=== PATIENT | female | born 1990 | race American Indian/Alaskan Native ===

== ENCOUNTER 2017-09-19 07:49 | Inpatient (IN) | payer MEDICAID ==
[2017-09-19 08:04] VITALS: BMI 25.1
--- NOTE | 2017-09-19 08:28 | ED PDOC ---
Arrival/HPI - General Chief Complaint: Substance Abuse Time Seen by Provider: 09/19/17 07:51 Historian: Patient - History of Present Illness Narrative History of Present Illness (Text): 09/19/17 08:26 A 26 year old female, whose past medical history includes, schizo affective schizophrenia, presents to the emergency department for attempting to commit suicide earlier this morning by ingesting a cocktail of prescribed medication. pt took pills 11pm last night. These medications include losartan 12.5 mg, benztropine 1 mg & 2 mg, monteluksat 10 mg, diphenhydramine 25 mg. The patient is constantly changing her HPI. She first reports she only all pills, now she is reporting she took only "a few pills" . The patient is currently still suicidal and denies any homicidal ideations. She also denies any chest pain, headaches, fevers, or any other complaints at this time. 09/19/17 12:14 Time/Duration: 4-6 hours Symptom Onset: Sudden Symptom Course: Unchanged Activities at Onset: Emotional Upset Context: Home Past Medical History - Infectious Disease Hx of Infectious Diseases: None - Tetanus Immunization Tetanus Immunization: Unknown - Cardiac Hx Cardiac Disorders: No Hx Hypertension: No - Pulmonary Hx Tuberculosis: No - Neurological HX Cerebrovascular Accident: No Hx Seizures: No - HEENT Hx HEENT Disorder: No Hx Blind: No Hx Cataracts: No Hx Deafness: No Hx Difficulty Chewing: No Hx Epistaxis: No Hx Glaucoma: No Hx Macular Degeneration: No - Renal Hx Renal Failure: No - Endocrine/Metabolic Hx Hyperthyroidism: No Hx Hypothyroidism: No - Hematological/Oncological Hx Cancer: No - Integumentary Hx Dermatological Disorder: No Hx Basal Cell Carcinoma: No Hx Eczema: No Hx Melanoma: No Hx Psoriasis: No Hx Squamous Cell Carcinoma: No - Musculoskeletal/Rheumatological Hx Arthritis: No - Gastrointestinal Hx Crohn's Disease: No Hx Diverticulitis: No Hx Gastroesophageal Reflux: No Hx Gastrointestinal Ulcer: No Hx Liver Failure: No - Genitourinary/Gynecological Hx Sexually Transmitted Diseases: No - Psychiatric Hx Psychophysiologic Disorder: Yes Hx Bipolar Disorder: Yes Hx Depression: No Hx Emotional Abuse: No Hx Physical Abuse: No Hx Schizophrenia: Yes Hx Substance Use: Yes - Surgical History Hx Amputation: No Hx Appendectomy: No Hx Cardiac Catheterization: No Hx Cholecystectomy: No Hx Coronary Stent: No Hx Gastric Bypass Surgery: No Hx Hysterectomy: No Hx Joint Replacement: No Hx Kidney Transplant: No Hx Liver Transplant: No Hx Mastectomy: No Hx Open Heart Surgery: No Hx Orthopedic Surgery: No Hx Splenectomy: No Hx Valve Replacement: No - Anesthesia Hx Anesthesia: No Hx Anesthesia Reactions: No Hx Malignant Hyperthermia: No - Suicidal Assessment Feels Threatened In Home Enviroment: No Family/Social History - Physician Review Nursing Documentation Reviewed: Yes Family/Social History: No Known Family HX Smoking Status: Light Smoker < 10 Cigarettes Daily Hx Alcohol Use: Yes Hx Substance Use: Yes Substance used: marijuana Hx Substance Use Treatment: No Allergies/Home Meds Allergies/Adverse Reactions: Allergies aripiprazole [From Abilify] Allergy (Verified 11/30/16 02:31) ANAPHYLAXIS divalproex sodium [From Depakote] Allergy (Verified 09/19/17 08:19) ANAPHYLAXIS lithium Allergy (Verified 09/19/17 08:19) ANAPHYLAXIS Home Medications: Home Meds Medication Instructions Recorded Confirmed Benztropine [Benztropine Mesylate] 3 mg PO DAILY 09/19/17 09/19/17 DiphenhydrAMINE [Benadryl] 50 mg PO PRN 09/19/17 09/19/17 Haloperidol Lactate [Haloperidol 50 mg IM 09/19/17 Lactate Novaplus] Review of Systems - Physician Review All systems were reviewed & negative as marked: Yes - Review of Systems Constitutional: absent: Fevers Cardiovascular: absent: Chest Pain Neurological: absent: Headache Psychiatric: Suicidal Ideation Physical Exam Vital Signs Reviewed: Yes Vital Signs Temp Pulse Resp BP Pulse Ox 09/19/17 12:36 98.7 F 89 18 122/60 99 09/19/17 10:55 92 H 18 110/75 100 09/19/17 08:04 98.0 F 98 H 18 154/63 H 100 Temperature: Afebrile Blood Pressure: Hypertensive Pulse: Tachycardic Respiratory Rate: Normal Appearance: Positive for: Well-Appearing, Non-Toxic, Comfortable Pain Distress: None Mental Status: Positive for: Alert and Oriented X 3 - Systems Exam Head: Present: Atraumatic, Normocephalic Pupils: Present: PERRL Extroacular Muscles: Present: EOMI Conjunctiva: Present: Normal Mouth: Present: Moist Mucous Membranes Neck: Present: Normal Range of Motion Respiratory/Chest: Present: Clear to Auscultation, Good Air Exchange. No: Respiratory Distress, Accessory Muscle Use Cardiovascular: Present: Regular Rate and Rhythm, Normal S1, S2. No: Murmurs Abdomen: Present: Normal Bowel Sounds. No: Tenderness, Distention, Peritoneal Signs Back: Present: Normal Inspection Upper Extremity: Present: Normal Inspection. No: Cyanosis, Edema Lower Extremity: Present: Normal Inspection. No: Edema Neurological: Present: GCS=15, CN II-XII Intact, Speech Normal Skin: Present: Warm, Dry, Normal Color. No: Rashes Psychiatric: Present: Alert, Oriented x 3, Normal Insight, Normal Concentration Medical Decision Making ED Course and Treatment: 09/19/17 08:27 Impression: A 36 year old female with suicidal ideation. Differential Diagnosis included but are not limited to: Plan: -- EKG -- Chest X-ray -- Labs -- Urinalysis -- Reassess and disposition Progress Notes: 09/19/17 08:39 EKG: Ordered, reviewed, and independently interpreted the EKG. Rate : 90 BPM Rhythm : Normal sinus Interpretation : No ST/T wave changes, normal intervals. Comparison : No previous EKG for comparison. 09/19/17 09:02 Case discussed with Ed from the emergency department poison control, who requests the patient receives supportive management and can be medically cleared after 4-6 hours of observation. Report Date : 09/19/2017 09:58:50 Chest X-ray Flavoring Oil Filterer : Sony Zaragoza MD HISTORY:pysch COMPARISON: 12/01/2016 FINDINGS: LUNGS:No active pulmonary disease. PLEURA:No significant pleural effusion identified, no pneumothorax apparent. CARDIOVASCULAR:Normal. OSSEOUS STRUCTURES:No significant abnormalities. VISUALIZED UPPER ABDOMEN:Normal. OTHER FINDINGS:None. IMPRESSION: No active disease. 09/19/17 10:40 Patient has been accepted by Psychiatrist Dr. Butler and she recommends medical consult for renal insufficiency. The patient denies any current medical complaints. She was observed for 4 hours without any medical complaints. The patient presents tachycardia sinus anticholingeric toxicity and does not display any signs of hypotension. As per [place] Poison Control, the patient can be medically cleared. Initial ingestion was around 12 hours ago. 09/19/17 12:15 meidcally cleared. - Lab Interpretations Lab Results: 09/19/17 08:15 09/19/17 08:15 Lab Results 09/19/17 08:15: Alcohol, Quantitative < 10 09/19/17 08:15: Salicylates < 1 L, Acetaminophen < 10.0 L 09/19/17 08:15: Urine Opiates Screen Negative, Urine Methadone Screen Negative, Ur Barbiturates Screen Negative, Ur Phencyclidine Scrn Negative, Ur Amphetamines Screen Negative, U Benzodiazepines Scrn Negative, U Oth Cocaine Metabols Negative, U Cannabinoids Screen Positive H 09/19/17 08:15: Sodium 141, Potassium 4.0, Chloride 105, Carbon Dioxide 22, Anion Gap 18, BUN 13, Creatinine 1.6 H, Est GFR ( Amer) 48, Est GFR (Non- Af Amer) 39, Random Glucose 96, Calcium 9.8, Total Bilirubin 0.8, AST 19, ALT 26 , Alkaline Phosphatase 95, Total Protein 7.9, Albumin 4.6, Globulin 3.3, Albumin /Globulin Ratio 1.4 09/19/17 08:15: Urine Color Yellow, Urine Appearance Clear, Urine pH 6.0, Ur Specific [place] 1.020, Urine Protein >=300 H, Urine Glucose (UA) Negative, Urine Ketones Trace H, Urine Blood Large H, Urine Nitrate Negative, Urine Bilirubin Negative, Urine Urobilinogen 1.0 H, Ur Leukocyte Esterase Trace H, Urine RBC 5 - 10, Urine WBC 10 - 15, Ur Epithelial Cells 1 - 3, Urine Bacteria Few, Urine HCG, Qual Negative 09/19/17 08:15: WBC 7.8, RBC 4.91, Hgb 13.9, Hct 40.6, MCV 82.7, MCH 28.3, MCHC 34.2, RDW 14.6 H, Plt Count 277, MPV 10.8, Gran % 68.0, Lymph % (Auto) 21.5 L, Tripp % (Auto) 9.6 H, Eos % (Auto) 0.8 L, Baso % (Auto) 0.1, Gran # 5.32, Lymph # 1.7, Tripp # 0.8 H, Eos # 0.1, Baso # 0.01 I have reviewed the lab results: Yes - RAD Interpretation Radiology Orders: 09/19/17 08:09 CHEST PORTABLE [RAD] Stat - Medication Orders Current Medication Orders: Benztropine Mesylate (Cogentin) 0.5 mg PO AMHS NOAH Diphenhydramine HCl (Benadryl) 50 mg IM Q6 PRN PRN Reason: Allergy symptoms Diphenhydramine HCl (Benadryl) 50 mg PO Q6 PRN PRN Reason: Anxiety Haloperidol (Haldol) 5 mg PO AMHS NOAH PRN Reason: Protocol Haloperidol (Haldol) 5 mg PO Q6 PRN; Protocol PRN Reason: Agitation Last Admin: 09/19/17 14:10 Dose: 5 mg Behavioural Document 09/19/17 14:10 ABO (Rec: 09/19/17 14:10 ABO [id number]) Maintenance Maintenance Dose No Nonmedicinal Nonmedicinal Interventions See nurse's notes Behavior Behavior for Medication: Hallucinations/paranoid/ delusions/extreme fear Haloperidol Lactate (Haldol) 5 mg IM Q6 PRN; Protocol PRN Reason: Agitation Lorazepam (Ativan) 2 mg IM Q6H PRN; Protocol PRN Reason: Anxiety Lorazepam (Ativan) 2 mg PO Q6H PRN; Protocol PRN Reason: Agitation Zaleplon (Sonata) 5 mg PO HS PRN PRN Reason: Insomnia - Scribe Statement The provider has reviewed the documentation as recorded by the Scribe Cha Bateman Provider Scribe Attestation: All medical record entries made by the Scribe were at my direction and personally dictated by me. I have reviewed the chart and agree that the record accurately reflects my personal performance of the history, physical exam, medical decision making, and the department course for this patient. I have also personally directed, reviewed, and agree with the discharge instructions and disposition. Disposition/Present on Arrival - Present on Arrival Any Indicators Present on Arrival: No History of DVT/PE: No History of Uncontrolled Diabetes: No Urinary Catheter: No History of Decub. Ulcer: No History Surgical Site Infection Following: None - Disposition Have Diagnosis and Disposition been Completed?: Yes Diagnosis: Schizophrenia, Bipolar 1 disorder, Renal insufficiency Disposition: HOSPITALIZED Disposition Time: 02:40 Condition: STABLE
[2017-09-19 08:41] LABS: BASO # 0.01 K/mm3 (0.0-2.0); BASO % 0.1 % (0.0-3.0); EOS # 0.1 (0.0-0.7); EOS % 0.8 % (1.5-5.0); GRAN # 5.32 (1.4-6.5); HEMATOCRIT 40.6 % (36.0-48.0); LYMPH # 1.7 (1.2-3.4); LYMPH % 21.5 % (22.0-35.0); MEAN CELL VOLUME 82.7 fl (80.0-105.0); MEAN CORPUSCULAR HEMOGLOBIN 28.3 pg (25.0-35.0); MEAN CORPUSCULAR HGB CONC 34.2 g/dl (31.0-37.0); MEAN PLATELET VOLUME 10.8 fl (7.0-11.0); MONO # 0.8 (0.1-0.6); MONO % 9.6 % (1.0-6.0); RED CELL DISTRIBUTION WIDTH 14.6 % (11.5-14.5); WHITE BLOOD COUNT 7.8 10^3/ul (4.5-11.0)
[2017-09-19 08:43] LABS: URINE BILIRUBIN NEGATIVE (NEGATIVE); URINE BLOOD LARGE (NEGATIVE); URINE GLUCOSE (UA) NEGATIVE (NEGATIVE); URINE KETONE TRACE mg/dL (NEGATIVE); URINE LEUKOCYTE ESTERASE TRACE Leu/uL (NEGATIVE); URINE PROTEIN >=300 mg/dL (<30 mg/dL)
[2017-09-19 08:47] LABS: URINE APPEARANCE CLEAR (CLEAR); URINE COLOR YELLOW (YELLOW)
[2017-09-19 08:53] LABS: ALB/GLOB RATIO 1.4 (1.1-1.8); BILIRUBIN,TOTAL 0.8 mg/dL (0.2-1.3); CALCIUM 9.8 mg/dL (8.4-10.5); TOTAL PROTEIN 7.9 g/dL (5.8-8.3)
[2017-09-19 08:56] LABS: URINE BACTERIA FEW (NEG)
--- NOTE | 2017-09-19 10:00 | RAD ---
HISTORY: pysch COMPARISON: 12/01/2016 FINDINGS: LUNGS: No active pulmonary disease. PLEURA: No significant pleural effusion identified, no pneumothorax apparent. CARDIOVASCULAR: Normal. OSSEOUS STRUCTURES: No significant abnormalities. VISUALIZED UPPER ABDOMEN: Normal. OTHER FINDINGS: None. IMPRESSION: No active disease.
--- NOTE | 2017-09-19 12:59 | CARD ---
APPROVED REPORT EKG Measurement Heart [id number] MD [id number] <Conclusion> Normal sinus rhythm NSSTW changes Mildly prolonged QTc LVH by voltage, could be normal for age.
--- NOTE | 2017-09-19 16:23 | PCM.BM ---
<Amanda Whipple - Last Filed: 09/19/17 16:19> Treatment Plan Problems - Problems identified on initial assessmt thoughts process Date Initiated: 09/19/17 Time Initiated: 16:00 Assessment reference: NA Status: Active Priority: 1 delusions Date Initiated: 09/19/17 Time Initiated: 16:00 Assessment reference: NA Status: Active Priority: 2 aggressive behavior Date Initiated: 09/19/17 Time Initiated: 16:00 Assessment reference: NA Status: Active Priority: 3 medication nonadherence Date Initiated: 09/19/17 Time Initiated: 16:00 Assessment reference: NA Status: Active Priority: 4 guarded behavior Date Initiated: 09/19/17 Time Initiated: 16:00 Assessment reference: NA Status: Active Priority: 5 Treatment assets and liabiliti Patient Assests: adapts well, self-reliant, ADL independent, negotiates basic needs Patient Liabilities: relationship conflicts, substance abuse, visual impairment - Milieu Protocol Maintain good personal hygiene: every shift Encourage regular showers, every shift Remind patient to perform daily oral care, every shift Assist patient to perform ADL's Conduct patient checks and document Observation sheet: Q15 minutes Maintain personal safety: every shift Educate patient to report safety concerns to staff, every shift Monitor environment for contraband/sharps Medication safety: Monitor for expected outcome, potential side effects: every shift, Assess barriers to learning: every shift, Assess readiness for medication education: every shift Family Contact Family involvement: Famliy/SO not involved Discharge/Continuing Care - Education Needs Education Needs: Patient Medication, Patient Diagnosis/Disease Process, Patient Coping Skills, Patient Personal Hygiene/Grooming - Discharge Discharge Criteria: Tolerates medication w/o severe side effects, Free of Suicidal thoughts, Free of agitation, Ability to care for self <Carrie Thomas - Last Filed: 09/20/17 08:56> - Diagnosis (1) Schizophrenia Status: Acute Interventions: 09/20/17 08:56 Psychoeducation/psychotherapy Psychopharmacology/adjustment of medications as needed/ monitoring possible side effects Evaluate pt on daily basis Compliance with medications and follow up appointments Long acting medication if pt is noncompliant with pill form Suicide and homicide risk assessment and prevention, coping strategies, safety plan Relapse prevention Reduction of symptoms Improve functional status Possible assertive community treatment Cognitive behavioral therapy Family involvement Possible social skill training as outpatient <Karen Acosta Y - Last Filed: 09/22/17 08:04> Family Contact Family involvement: Family/SO is involved Family contact: Telephone contact initiated by staff Family contact name: Junior Jamison(father) [phone] Family contacted how many times per week?: 2
[2017-09-19] MEDS: DiphenhydrAMINE 50 mg/ml Inj IM PRN (20:30)
[2017-09-20] MEDS: DiphenhydrAMINE 50 mg/ml Inj IM PRN (02:28)
[2017-09-20 07:03] VITALS: O2SAT 99
[2017-09-20 08:03] LABS: BLOOD UREA NITROGEN 11 mg/dL (7-21); CARBON DIOXIDE 24 mmol/L (21-33); CHLORIDE 103 mmol/L (98-107); CHOLESTEROL 111 mg/dL (130-200); GFR AFRICAN-AMERICAN > 60; GLUCOSE,FASTING 94 mg/dL (65-110); GLUCOSE,RANDOM 94 mg/dL (70-110); POTASSIUM 3.6 mmol/L (3.6-5.0); SODIUM 140 mmol/L (132-148)
--- NOTE | 2017-09-20 13:53 | CP.PCM.CON ---
<Alonzo Martinez - Last Filed: 09/20/17 14:07> History of Present Illness - History of Present Illness History of Present Illness: CC: Suicide attempt via polypharmacy and Psychosis HPI: Patient is a 26 year old female with past medical history of schizoaffective and schizophrenia disorder who presented to [facility] ED after suicidal ideation/ attempt with polypharmacy including losartan 12.5mg, benztropine 1mg & 2mg, monteleukast 10mg, diphenhydramine 25mg per chart review. Poison control was contacted. Patient is noted to have poor eye contact, incomprehensible speech at times, intermittent cooperation with questioning and overall poor historian. Patient does admit to taking multiple medications at one time but is non- specific in answering questions regarding where and whose medications she decided to ingest, as well as the reason. Per chart review and previous visits patient is noted to have previous attempts at suicide via ingestion of medications. Upon review of lab work patient is noted to have elevated Cr on admission and UA showing positive for leukocyte esterase and negative nitrate. Patient denies chest pain, shortness of breath, abdominal pain, dysuria, fever, chills, nausea and vomiting. PMH: Schizoaffective disorder, Schizophrenia disorder, Substance abuse disorder PSH: None FMH: Unknown SocHx: Tobacco: denies, ETOH: Social, Illicit drugs: THC All: Aripiprazole, divalproex sodium, lithium Meds: - Benztropine - Diphenhydramine - Haloperidol lactacte Pharmacy: [facility] PMD: Alisha Figueroa Review of Systems - Review of Systems Review of Systems: Limited secondary to psychosis - Constitutional Constitutional: absent: Chills, Fever - Cardiovascular Cardiovascular: absent: Chest Pain, Dyspnea - Respiratory Respiratory: absent: Cough, Dyspnea - Gastrointestinal Gastrointestinal: absent: Abdominal Pain - Genitourinary Genitourinary: Urinary Frequency (increased). absent: Dysuria Past Patient History - Infectious Disease Hx of Infectious Diseases: None - Tetanus Immunizations Tetanus Immunization: Unknown - Past Social History Smoking Status: Light Smoker < 10 Cigarettes Daily Alcohol: Social Drugs: Cannabis - CARDIAC Hx Cardiac Disorders: No Hx Hypertension: No - PULMONARY Hx Respiratory Disorders: No Hx Tuberculosis: No - NEUROLOGICAL HX Cerebrovascular Accident: No Hx Seizures: No - HEENT Hx HEENT Problems: No Hx Cataracts: No Hx Deafness: No Hx Difficulty Chewing: No Hx Epistaxis: No Hx Glaucoma: No Hx Macular Degeneration: No - RENAL Hx Renal Failure: No - ENDOCRINE/METABOLIC Hx Hyperthyroidism: No Hx Hypothyroidism: No - HEMATOLOGICAL/ONCOLOGICAL Hx Blood Disorders: No Hx Cancer: No - INTEGUMENTARY Hx Dermatological Problems: No Hx Basil Cell: No Hx Eczema: No Hx Melanoma: No Hx Psoriasis: No Hx Squamous Cell: No - MUSCULOSKELETAL/RHEUMATOLOGICAL Hx Arthritis: No - GASTROINTESTINAL Hx Crohn's Disease: No Hx Diverticulitis: No Hx Gastroesophageal Reflux: No Hx Liver Failure: No - GENITOURINARY/GYNECOLOGICAL Hx Sexually Transmitted Disorders: No - PSYCHIATRIC Hx Emotional Abuse: Yes Hx Schizophrenia: Yes Hx Substance Use: Yes - SURGICAL HISTORY Hx Surgeries: No Hx Amputation: No Hx Appendectomy: No Hx Cardiac Catheterization: No Hx Cholecystectomy: No Hx Coronary Stent: No Hx Gastric Bypass Surgery: No Hx Hysterectomy: No Hx Joint Replacement: No Hx Kidney Transplant: No Hx Liver Transplant: No Hx Mastectomy: No Hx Open Heart Surgery: No Hx Orthopedic Surgery: No Hx Splenectomy: No Hx Valve Replacement: No - ANESTHESIA Hx Anesthesia: No Hx Anesthesia Reactions: No Hx Malignant Hyperthermia: No Meds Allergies/Adverse Reactions: Allergies Allergy/AdvReac Type Severity Reaction Status Date / Time aripiprazole [From Abilify] Allergy ANAPHYLAXIS Verified 09/19/17 16:31 divalproex sodium Allergy ANAPHYLAXIS Verified 09/19/17 16:31 [From Depakote] lithium Allergy ANAPHYLAXIS Verified 09/19/17 16:31 - Medications Medications: Current Medications Benztropine Mesylate (Cogentin) 0.5 mg PO AMHS NOAH Last Admin: 09/20/17 09:05 Dose: 0.5 mg Benztropine Mesylate (Cogentin) 0.5 mg PO 1600 NOAH Carbamazepine (Tegretol) 200 mg PO BID NOAH PRN Reason: Protocol Last Admin: 09/20/17 12:48 Dose: 200 mg Diphenhydramine HCl (Benadryl) 50 mg IM Q6 PRN PRN Reason: Allergy symptoms Last Admin: 09/20/17 02:28 Dose: 50 mg Diphenhydramine HCl (Benadryl) 50 mg PO Q6 PRN PRN Reason: Anxiety Haloperidol (Haldol) 5 mg PO Q6 PRN; Protocol PRN Reason: Agitation Last Admin: 09/19/17 14:10 Dose: 5 mg Haloperidol (Haldol) 10 mg PO AMHS NOAH PRN Reason: Protocol Last Admin: 09/20/17 09:04 Dose: 10 mg Haloperidol (Haldol) 10 mg PO 1600 NOAH PRN Reason: Protocol Haloperidol Lactate (Haldol) 5 mg IM Q6 PRN; Protocol PRN Reason: Agitation Last Admin: 09/20/17 02:28 Dose: 5 mg Lorazepam (Ativan) 2 mg IM Q6H PRN; Protocol PRN Reason: Anxiety Last Admin: 09/20/17 12:33 Dose: 2 mg Lorazepam (Ativan) 2 mg PO Q6H PRN; Protocol PRN Reason: Agitation Last Admin: 09/20/17 09:05 Dose: 2 mg Lorazepam (Ativan) 1 mg PO AMHS NOAH PRN Reason: Protocol Lorazepam (Ativan) 1 mg PO 1600 NOAH PRN Reason: Protocol Zaleplon (Sonata) 5 mg PO HS PRN PRN Reason: Insomnia Physical Exam - Constitutional Appears: Agitated Additional comments: stated age, poor concentration at times - Head Exam Head Exam: ATRAUMATIC, NORMAL INSPECTION - Eye Exam Eye Exam: EOMI, PERRL - ENT Exam ENT Exam: Mucous Membranes Moist - Respiratory Exam Respiratory Exam: Clear to Auscultation Bilateral, NORMAL BREATHING PATTERN - GI/Abdominal Exam GI & Abdominal Exam: Normal Bowel Sounds, Soft, Tenderness (mild at suprapubic region). absent: Rebound - Extremities Exam Extremities exam: Positive for: full ROM. Negative for: calf tenderness - Back Exam Back exam: NORMAL INSPECTION. absent: CVA tenderness (L), CVA tenderness (R) - Neurological Exam Neurological exam: Alert, CN II-XII Intact, Normal Gait - Psychiatric Exam Psychiatric exam: Flat Affect Additional comments: Patient noted to be have poor cooperation with interview at times, flat affect, periodic tangential speech, periodic incomprehensible speech, patient does not respond to questioning regarding suicidal ideation or attempts - Skin Skin Exam: Dry, Intact, Normal Color Results - Vital Signs Recent Vital Signs: Last Vital Signs Temp 98.2 F 09/20/17 07:02 Pulse 95 H 09/20/17 07:02 Resp 18 09/20/17 07:02 BP 126/89 09/20/17 07:02 Pulse Ox 99 09/20/17 07:02 - Labs Result Diagrams: 09/19/17 08:15 09/20/17 07:00 Labs: Laboratory Results - last 24 hr 09/20/17 07:00 Sodium 140 Potassium 3.6 Chloride 103 Carbon Dioxide 24 Anion Gap 17 BUN 11 Creatinine 1.1 Est GFR ( Amer) > 60 Est GFR (Non-Af Amer) > 60 Random Glucose 94 Fasting Glucose 94 Calcium 10.0 Triglycerides 54 Cholesterol 111 L LDL Cholesterol Direct 57 HDL Cholesterol 39 Assessment & Plan - Assessment and Plan (Free Text) Assessment: Patient is a 26 year old female with past medical history of schizoaffective disorder and schizophrenia who is admitted to [facility] inpatient psychiatry unit for suicidal attempt via polypharmacy. Plan: 1. Suicidal ideation/attempt, schizoaffective and schizophrenia - management per psychiatry team 2. Mild ZAKIYA - resolved - Elevated Cr on admission, within normal range now - likely secondary to polypharmacy including losartan ingestion - hold nephro insulting drugs at this time 3. UA positive for leukocyte esterase - Urine culture pending - Macrobid 100mg BID for 5 days case and plan discussed with attending - Date & Time Date: 09/20/17 Time: 14:09 <Nereida Viveros - Last Filed: 09/20/17 15:08> Meds - Medications Medications: Current Medications Benztropine Mesylate (Cogentin) 0.5 mg PO AMHS NOAH Last Admin: 09/20/17 09:05 Dose: 0.5 mg Benztropine Mesylate (Cogentin) 0.5 mg PO 1600 NOAH Carbamazepine (Tegretol) 200 mg PO BID NOAH PRN Reason: Protocol Last Admin: 09/20/17 12:48 Dose: 200 mg Diphenhydramine HCl (Benadryl) 50 mg IM Q6 PRN PRN Reason: Allergy symptoms Last Admin: 09/20/17 02:28 Dose: 50 mg Diphenhydramine HCl (Benadryl) 50 mg PO Q6 PRN PRN Reason: Anxiety Haloperidol (Haldol) 5 mg PO Q6 PRN; Protocol PRN Reason: Agitation Last Admin: 09/19/17 14:10 Dose: 5 mg Haloperidol (Haldol) 10 mg PO AMHS NOAH PRN Reason: Protocol Last Admin: 09/20/17 09:04 Dose: 10 mg Haloperidol (Haldol) 10 mg PO 1600 NOAH PRN Reason: Protocol Haloperidol Lactate (Haldol) 5 mg IM Q6 PRN; Protocol PRN Reason: Agitation Last Admin: 09/20/17 02:28 Dose: 5 mg Lorazepam (Ativan) 2 mg IM Q6H PRN; Protocol PRN Reason: Anxiety Last Admin: 09/20/17 12:33 Dose: 2 mg Lorazepam (Ativan) 2 mg PO Q6H PRN; Protocol PRN Reason: Agitation Last Admin: 09/20/17 09:05 Dose: 2 mg Lorazepam (Ativan) 2 mg PO 1600 NOAH PRN Reason: Protocol Lorazepam (Ativan) 2 mg PO AMHS NOAH PRN Reason: Protocol Nitrofurantoin Macrocrystals (Macrobid) 100 mg PO Q12 NOAH Stop: 09/25/17 18:01 Zaleplon (Sonata) 5 mg PO HS PRN PRN Reason: Insomnia Results - Vital Signs Recent Vital Signs: Last Vital Signs Temp 98.2 F 09/20/17 07:02 Pulse 95 H 09/20/17 07:02 Resp 18 09/20/17 07:02 BP 126/89 09/20/17 07:02 Pulse Ox 99 09/20/17 07:02 - Labs Result Diagrams: 09/19/17 08:15 09/20/17 07:00 Labs: Laboratory Results - last 24 hr 09/20/17 07:00 Sodium 140 Potassium 3.6 Chloride 103 Carbon Dioxide 24 Anion Gap 17 BUN 11 Creatinine 1.1 Est GFR ( Amer) > 60 Est GFR (Non-Af Amer) > 60 Random Glucose 94 Fasting Glucose 94 Calcium 10.0 Triglycerides 54 Cholesterol 111 L LDL Cholesterol Direct 57 HDL Cholesterol 39 Attending/Attestation - Attestation I have personally seen and examined this patient.: Yes I have fully participated in the care of the patient.: Yes I have reviewed all pertinent clinical information: Yes Notes (Text): 09/20/17 15:01 MEDICAL CONSULTATION 26 year old female with past medical history of schizophrenia who is admitted for suicidal attempt with polypharmacy and disorganized thoughts and behavior. Continue with management as per psychiatrist. Poison control was notified on admission who recommended supportive care. Initially she had mild ZAKIYA which has improved. UTox was positive for cannabinoids. Can start macrobid for possible UTI while awaiting urine culture. Labs and chart were reviewed. Thank you Dr. Thomas for allowing us to participate in the care of this patient. Please re-consult as needed. Nereida Viveros MD
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
--- NOTE | 2017-09-23 09:27 | PCM.PYCHPN ---
Psychiatric Progress Note - Psychiatric Progress Note Patient seen today, length of contact: 25 min Patient Chief Complaint: "okay, better" Problems Identified/Issues Discussed: I reviewed assessment and recent notes. Patient was interviewed at bedside. She 's alert and oriented x3. Grooming is fair. She reports that she feels "okay, better". Affect is internally preoccupied and patient pauses before she denies experiencing hallucinations. She is not responding to internal stimuli during my visit. Patient is currently tolerating medications and denies new discomfort or pain. Staff notes indicate that patient has been compliant. Remains delusional. There were no behavioral issues overnight Diagnostic Results: schizophrenia spectrum disorder r/o substance induced psychosis, (pt was smoking marijana daily, r/o synthetic drug use) Medication Change: No Medical Record Reviewed: Yes Mental Status Examination - Cognitive Function Orientation: Person, Place, Situation Attention: WNL - Mood Mood: Depressed ("okay, better") - Affect Affect: Flat (preoccupied) - Speech Speech: Appropriate - Formal Thought Process Formal Thought Process: No Impairment - Suicidal Ideation Suicidal Ideation: No - Homicidal Ideation Homicidal Ideation: No Goal/Treatment Plan - Goal/Treatment Plan Need for Continued Stay: Remain at risks for inpatient hospitalization, Severe depression anxiety, Discharge may exacerbated symptoms, Severe functional impairment Progress Toward Problem(s) and Goals/Treatment Plan: * c/w current tx and plan * No new weekend labs thus far * Vitals reviewed and noted below: Selected Entries 09/20/17 09/20/17 09/22/17 07:02 16:00 07:03 Temperature 98.2 F Pulse Rate 95 H 115 H 81 Respiratory 18 20 Rate Blood Pressure 126/89 113/73 109/61 O2 Sat by Pulse 99 Oximetry Oxygen Delivery Room Air Method 09/22/17 15:00 Temperature Pulse Rate 109 H Respiratory Rate Blood Pressure 107/63 O2 Sat by Pulse Oximetry Oxygen Delivery Method Estimated Date of D/C: 09/26/17
--- NOTE | 2017-09-24 10:39 | PCM.PYCHPN ---
Psychiatric Progress Note - Psychiatric Progress Note Patient seen today, length of contact: 25 min Patient Chief Complaint: "okay, better" Problems Identified/Issues Discussed: I reviewed recent notes and patient was interviewed at bedside. She's alert and oriented x3. Grooming is fair. She reports that she feels "okay, better". Affect is preoccupied and patient denies experiencing any hallucinations recently. She is not responding to internal stimuli during my visit and staff reports do not note any bizarre behaviors. Patient is currently tolerating medications and denies new discomfort or pain. Staff notes indicate that patient has been groomed and compliant. Remains a little guarded and has been attending some groups. There were no major behavioral issues over the weekend. She was requesting discharge on Monday however appeared to change her mind after the new admissions arrived. Also reports that she is agreeable to Haldol Decanoate. Diagnostic Results: schizophrenia spectrum disorder r/o substance induced psychosis, (pt was smoking marijana daily, r/o synthetic drug use) Medication Change: No Medical Record Reviewed: Yes Mental Status Examination - Cognitive Function Orientation: Person, Place, Situation Attention: WNL - Mood Mood: Depressed ("okay, better") - Affect Affect: Flat (preoccupied) - Speech Speech: Appropriate - Formal Thought Process Formal Thought Process: No Impairment - Suicidal Ideation Suicidal Ideation: No - Homicidal Ideation Homicidal Ideation: No Goal/Treatment Plan - Goal/Treatment Plan Need for Continued Stay: Remain at risks for inpatient hospitalization, Severe depression anxiety, Discharge may exacerbated symptoms, Severe functional impairment Progress Toward Problem(s) and Goals/Treatment Plan: * c/w current tx and plan * No new weekend labs thus far * Patient reports she is agreeable to Haldol Dec prior to discharge * Vitals reviewed and noted below: Selected Entries 09/23/17 09/23/17 06:44 16:08 Temperature 97.8 F Pulse Rate 84 79 Respiratory 20 Rate Blood Pressure 95/57 L 99/53 L Estimated Date of D/C: 09/26/17
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
[2017-09-26] MEDS ORDERED: Haloperidol Decanoate 100 mg/ml Inj IM ONE (10:58)
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
[2017-09-27 07:02] VITALS: RESP 20
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
--- NOTE | 2017-09-27 16:48 | PCM.BM ---
<Karen Acosta Y - Last Filed: 09/27/17 16:47> Treatment Plan Problems - Problems identified on initial assessmt thoughts process Date Initiated: 09/19/17 Time Initiated: 16:00 Date resolved: 09/27/17 Assessment reference: SW, NA Status: Active Priority: 1 delusions Date Initiated: 09/19/17 Time Initiated: 16:00 Date resolved: 09/27/17 Assessment reference: SW, NA Status: Active Priority: 2 aggressive behavior Date Initiated: 09/19/17 Time Initiated: 16:00 Date resolved: 09/27/17 Assessment reference: SW, NA Status: Active Priority: 3 medication nonadherence Date Initiated: 09/19/17 Time Initiated: 16:00 Date resolved: 09/27/17 Assessment reference: SW, NA Status: Active Priority: 4 guarded behavior Date Initiated: 09/19/17 Time Initiated: 16:00 Assessment reference: NA Status: Active Priority: 5 Treatment assets and liabiliti Patient Assests: adapts well, self-reliant, ADL independent, negotiates basic needs Patient Liabilities: relationship conflicts, substance abuse, visual impairment - Milieu Protocol Maintain good personal hygiene: every shift Encourage regular showers, every shift Remind patient to perform daily oral care, every shift Assist patient to perform ADL's Conduct patient checks and document Observation sheet: Q15 minutes Maintain personal safety: every shift Educate patient to report safety concerns to staff, every shift Monitor environment for contraband/sharps Medication safety: Monitor for expected outcome, potential side effects: every shift, Assess barriers to learning: every shift, Assess readiness for medication education: every shift Milieu Narrative: * c/w current tx and plan * No new weekend labs thus far * Patient reports she is agreeable to Haldol Dec prior to discharge * Vitals reviewed and noted below: Selected Entries 09/23/17 09/23/17 06:44 16:08 Temperature 97.8 F Pulse Rate 84 79 Respiratory 20 Rate Blood Pressure 95/57 L 99/53 L Family Contact Family involvement: Family/SO is involved Family contact: Telephone contact initiated by staff Family contact name: Junior Jamison(father) [phone] Family contacted how many times per week?: 2 - Outside Agency [facility] Care involvment: Not involved Agency contact name: [facility] Agency contact number: [phone] Discharge/Continuing Care - Education Needs Education Needs: Patient Medication, Patient Diagnosis/Disease Process, Patient Coping Skills, Patient Personal Hygiene/Grooming - Discharge Discharge Criteria: Tolerates medication w/o severe side effects, Free of Suicidal thoughts, Free of agitation, Ability to care for self - Treatment Team Participation Patient/Family/SO Statement: * c/w current tx and plan * No new weekend labs thus far * Patient reports she is agreeable to Haldol Dec prior to discharge * Vitals reviewed and noted below: Selected Entries 09/23/17 09/23/17 06:44 16:08 Temperature 97.8 F Pulse Rate 84 79 Respiratory 20 Rate Blood Pressure 95/57 L 99/53 L Treatment Plan Review - Problem thoughts process Time Initiated: 16:00 delusions Time Initiated: 16:00 aggressive behavior Time Initiated: 16:00 medication nonadherence Time Initiated: 16:00 guarded behavior Time Initiated: 16:00 <Carrie Thomas - Last Filed: 09/28/17 13:11> - Diagnosis (1) Schizophrenia Status: Acute Interventions: 09/28/17 13:10 pt improved significantly pt got IM of Haldol Dec pt is not suicidal or homicidal behavior is under control
[2017-09-28 06:46] VITALS: BP 117/78; PULSE 98; TEMP 97.8
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
== END 2017-09-28 12:45 | disposition home or self-care (01) | DRG 430 ==
LOC: ED 07:49 → ERH 10:41 → PSYC 12:49
PROVIDERS: ADMIT Psychiatry & Neurology Psychiatry; ATTEND Psychiatry & Neurology Psychiatry
DX: F25.9 Schizoaffective disorder, unspecified (principal); N17.9 Acute kidney failure, unspecified; N39.0 Urinary tract infection, site not specified; F17.210 Nicotine dependence, cigarettes, uncomplicated; F12.10 Cannabis abuse, uncomplicated; Z91.14 Patient's other noncompliance with medication regimen; Z78.1 Physical restraint status; Z91.19 Patient's noncompliance with other medical treatment and regimen

== ENCOUNTER 2018-07-27 21:14 | Emergency (ER) | payer MEDICAID ==
[2018-07-27 21:15] VITALS: BMI 25.1
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
[2018-07-27 22:27] VITALS: BP 112/68; PULSE 68; RESP 16; TEMP 98.6; O2SAT 98
== END 2018-07-27 22:25 | disposition home or self-care (01) ==
LOC: ED 21:14
DX: R21 Rash and other nonspecific skin eruption (principal); F17.210 Nicotine dependence, cigarettes, uncomplicated; F20.9 Schizophrenia, unspecified